=== PATIENT | male | born 1950 | race Two or more races ===

== ENCOUNTER → 2024-08-17 | Outpatient (CLI) | payer OTHER, MEDICAID, SELFPAY ==
[2024-08-17 11:23] LABS: Basophils # (Auto) 0.1 Thou/mm3 (0.0-0.2); Basophils % (Auto) 1 % (0-2.5); Eosinophils # (Auto) 0.3 Thou/mm3 (0.0-0.5); Eosinophils % (Auto) 4 % (0-10); Hematocrit 40.9 % (41.0-53.0); Hemoglobin 14.1 g/dL (13.5-16.0); Immature Granulocytes % (Auto) 1 % (0-0); Immature Granulocytes Auto 0.07 Thou/mm3 (0.00-0.00); Lymphocytes # (Auto) 1.1 Thou/mm3 (1.0-4.8); Lymphocytes % (Auto) 14 % (10-50); Mean Corpuscular HGB Conc 34.5 g/dl (31.0-37.0); Mean Corpuscular Hemoglobin 30.8 pg (25.0-35.0); Mean Corpuscular Volume 89 fL (80-100); Monocytes % (Auto) 13 % (0-12); Neutrophils # (Auto) 5.3 Thou/mm3 (1.8-7.7); Neutrophils % (Auto) 67 % (37-80); Nucleated Red Blood Cell % 0 /100 WBC (0); Platelet Count 287 Thou/mm3 (140-440); RDW Standard Deviation 43.2 fL (35.1-43.9); Red Blood Count 4.58 Miln/mm3 (4.50-5.90); White Blood Count 7.9 Thou/mm3 (3.8-10.6)
[2024-08-17 11:31] LABS: Glucose Estimated Average 148 mg/dL (80-131); Hemoglobin A1C 6.8 % Hgb (4.8-6.0)
[2024-08-17 11:34] LABS: Alanine Aminotransferase 17 U/L (10-49); Albumin/Globulin Ratio 1.5 (1.2-2.2); Alkaline Phosphatase 84 U/L (46-116); Anion Gap 9 (7-16); Aspartate Amino Transferase 12 U/L (0-34); BUN/Creatinine Ratio 17 Ratio (12-20); Bilirubin,Total 0.5 mg/dL (0.3-1.2); Blood Urea Nitrogen 15 mg/dL (9-23); Calcium 8.9 mg/dL (8.3-10.6); Calcium (Corrected) 8.9 mg/dL (8.5-10.1); Carbon Dioxide 26.1 mMol/L (20.0-31.0); Cardiac Risk Estimate 5.3 RATIO (4.0-6.7); Chloride 102 mMol/L (98-107); Cholesterol 210 mg/dL (132-200); Creatinine (Component) 0.9 mg/dL (0.6-1.3); Globulin 2.6 gm/dL (2.3-3.5); Glucose 148 mg/dL (74-106); HDL Cholesterol 40 mg/dL (40-60); LDL Cholesterol,Calculated 141 mg/dL (0-130); Osmolality,Calculated 277 (275-295); Potassium 3.8 mMol/L (3.4-5.1); Sodium 137 mMol/L (136-145); Total Protein 6.6 gm/dL (5.7-8.2); Triglycerides 143 mg/dL (30-150); eGFR > 60 See Note
[2024-08-17 11:39] LABS: Creatinine MALB Rnd Ur 133 mg/dL (30-125); Microalbumin Creat Ratio 4 mg/gCrea (<30); Microalbumin, Random Urine 5 mg/L (0-300)
== END | disposition home or self-care (01) ==
PROVIDERS: PCP Nurse Practitioner Family; Referring Provider Nurse Practitioner Family; Visit Provider Nurse Practitioner Family
DX: I10 Essential (primary) hypertension (principal); E78.5 Hyperlipidemia, unspecified; E11.9 Type 2 diabetes mellitus without complications
CPT/HCPCS: 36415; 80053; 80061; 82043; 82570; 83036; 85025

== ENCOUNTER 2025-02-04 10:55 | Emergency (ER) | payer MEDICARE, SELFPAY ==
[2025-02-04] VITALS (9 sets, daily range): BP systolic 125–158; BP diastolic 78–91; PULSE 75–110; RESP 14–18; TEMP 36.4–37; O2SAT 94–99; BMI 23.3
--- NOTE | 2025-02-04 11:42 | PD.EDADULT ---
ED General RME/HPI General Chief complaint: Depression Stated complaint: DEPRESSION/WEAKNESS Time Seen by Provider: 02/04/25 11:53 Arrival date/time: 02/04/25 10:55 RME / HPI RME / HPI narrative: DR. TIDWELL MAIN ED EVALUATION: 74 year old male with past medical history significant for hypertension, arthritis on [place] presents to the Emergency Department [facility] with complaints of generalized weakness, depression, and failure to thrive. Patient lives alone and his recently and they were for 49 years; patient became depressed not wanting to eat or take his medications, even though he has them at home. Per EMS, BP was 140/90, tachycardic at 110. Per EMS, he is not suicidal but he is depressed. Patient also complained of generalized body aches from his arthritis; he has [place] but has not taken it. Patient has not ate in 3 days even though he has food. 1640: Daughter came in and states that she does know her dad is sad but that he does take his medications. She states that he has abdominal pain and constipation. Last bowel movement was 7 days ago. Also, daughter reports decreased appetite. Related Data Home Medications ?Medication ?Instructions ?Recorded ?Confirmed benazepril 20 mg tablet 20 mg PO DAILY 07/08/20 04/18/21 lorazepam 0.5 mg tablet 0.5 mg PO PRN PRN Anxiety 01/05/21 04/18/21 amlodipine 10 mg tablet (Norvasc) 10 mg PO DAILY 04/18/21 04/18/21 Previous Rx's ?Medication ?Instructions ?Recorded ascorbic acid (vitamin C) 500 mg 500 mg PO BID #60 tabs 04/19/21 chewable tablet docusate sodium 100 mg capsule 100 mg PO BID #90 caps 04/19/21 (Colace) hydrocodone 7.5 mg-acetaminophen 1 tab PO Q6H PRN pain (scale score 04/19/21 325 mg tablet 7-10) #30 tabs ibuprofen 600 mg tablet 600 mg PO Q8H PRN pain (scale 04/19/21 score 4-6) #15 tabs psyllium husk (with sugar) 3.4 1 tsp PO BID #60 ea 04/19/21 gram oral powder packet (Metamucil (with sugar)) zinc sulfate 50 mg zinc (220 mg) 50 mg PO QDAY #30 caps 08/19/21 capsule acetaminophen 325 mg capsule 650 mg (2 x 325 mg) PO Q6H PRN 02/12/23 pain #30 caps Allergies Allergy/AdvReac Type Severity Reaction Status Date / Time Iodinated Contrast Media Allergy Severe Hives Verified 04/18/21 08:00 (Iodinated Contrast- Oral and IV Dye) Review of Systems Review of Systems Systems Reviewed: All systems reviewed, normal except as documented Narrative Review of Systems: Constitutional: POSITIVES: decreased appetite (see HPI); generalized weakness DENIES: fevers; Eyes: DENIES: loss of vision; Head/Ear/Nose: DENIES: loss of hearing. Throat: DENIES: dysphagia. Cardiovascular: DENIES: chest pain, dyspnea, or syncope. Respiratory: DENIES: shortness of breath; Gastrointestinal: DENIES: rectal bleeding or melena. Genitourinary: DENIES: dysuria (painful or difficult urination); Musculoskeletal: DENIES: arthralgia (pain in a joint); Skin: DENIES: rash; Neurological: DENIES: loss of function or movement; Psychiatric: POSITIVES: recent major life stressor, emotional problem, depression (see HPI) DENIES: illicit drug use or abuse; Endocrinology: DENIES: weight change,; Hematologic/Lymphatic: DENIES: abnormal bruising. Allergic/Immunologic: DENIES: urticaria (hives). Past Medical History Past Medical History CARDIAC: Positive Cardiac Disorders and Hypertension GASTROINTESTINAL: Positive Hemorrhoids GENITOURINARY: Positive Genitourinary Disorders and Inguinal Hernia MUSCULOSKELETAL: Positive Musculoskeletal Disorders and Rheumatoid Arthritis PSYCHO/SOCIAL: Positive Anxiety OTHER HISTORY: Positive Chicken Pox Surgical History SURGICAL: Positive Abdominal Surgery Social History SMOKING STATUS: Former smoker SUBSTANCE USE: does not use ED Exam Narrative Physical exam: Physical Exam: General: The vital signs were reviewed. He has poor eye contact appears depressed. He says no one is feeding him but he lives alone and has food and water per paramedics. The patient is non-toxic, in no apparent distress and appears healthy with a patent airway, no respiratory distress and has no apparent circulatory problems. Head & Scalp: Normocephalic, atraumatic. Face: Appears normal and is without lesions, deformity. Ears: Left external pinna appears normal. Right external pinna appears normal. Eyes: The sclera is anicteric. No obvious photophobia. The Left and Right Orbit/Lid/Conjunctiva appears normal without swelling, discoloration or injection. Nose: The nose is without deformity, discharge or tenderness; Throat: Appears normal. The mucous membranes are pink and moist without exudates, redness or mass seen. The tongue appears normal. Neck: The neck is supple and no apparent mass or adenopathy. Chest: The chest wall is normal in size and symmetry and has no chest wall tenderness or crepitus. The patient displays normal ventilator effort without retractions, accessory muscle use and has adequate air movement bilaterally with no wheezes and no rales. Cardiovascular: Regular rate and rhythm; No murmurs, rubs, or gallops; Gastrointestinal: The abdomen appears normal. No obvious hernias or mass. Patient had central abdominal tenderness. Bowel sounds are present and normal sounding. No CVA tenderness. Genitourinary: Back/Spine: Normal inspection Extremities/Musculoskeletal/lymphatic: The bilateral upper and lower extremities are warm. There is no evidence of arterial insufficiency. There is no evidence of venous insufficiency/edema. The patient spontaneously moves bilateral upper and lower extremities with no pain and no limitation of movement. There is no apparent, injury or trauma. Skin: The skin is warm, dry and intact. No rashes. No petechia. No purpura. No abnormal bruising. The color is appropriate with no cyanosis. Mental status/Psychiatric: Mental status is appropriate for age. The patient has no apparent delusions, visual hallucinations, no apparent audible hallucinations. The patient has no apparent suicidal thoughts/ideation and no apparent homicidal thoughts/ideation. Neurological: The patient is awake, alert, interactive, cordial, cooperative and is oriented to name and situation. The patient follows commands and answers historical question with no impairment. There is no visual disturbance apparent. The pupils are equal and reactive bilaterally with normal eye movements and no diplopia The bilateral upper and lower extremities have normal strength, normal range of motion and normal functioning. The gait, station and balance not tested due to acute Course Quality Measures none Orders Category Date Time Status Bedside Blood Glucose NOW Care 02/04/25 11:[address] Screening NOW Care 02/04/25 17:22 Active Consult Leasing Specialist NOW Care 02/04/25 11:54 Completed EKG (ED ONLY) *Do not use* NOW Care 02/04/25 11:53 Completed Insert IV NOW Care 02/04/25 11:[address] abdomen pelvis w con Stat Exams 02/04/25 17:[address] head/brain wo con Stat Exams 02/04/25 11:53 Completed EKG (ED Only) Stat Exams 02/04/25 11:53 Draft XR chest 1V portable Stat Exams 02/04/25 11:53 Completed Alcohol, Blood Medical Stat Lab 02/04/25 11:53 Completed Ammonia Stat Lab 02/04/25 12:10 Completed B-Type Natriuretic Peptide Stat Lab 02/04/25 11:53 Completed Blood Culture (Lab) Stat Lab 02/04/25 12:10 Received CBC Stat Lab 02/04/25 11:53 Completed Comprehensive Metabolic Panel Stat Lab 02/04/25 11:53 Completed Drug Screen,Urine Stat Lab 02/04/25 13:14 Completed Lactate (Lactic Acid) Stat Lab 02/04/25 11:53 Completed Procalcitonin Stat Lab 02/04/25 11:53 Completed Prothrombin Time with INR Stat Lab 02/04/25 11:53 Completed Troponin I Stat Lab 02/04/25 11:53 Completed Type and Screen Stat Lab 02/04/25 12:10 Completed Urinalysis Stat Lab 02/04/25 13:14 Completed Urinalysis, C/S if Indicated Stat Lab 02/04/25 13:14 Completed Venous Blood Gas Stat Lab 02/04/25 11:53 Completed Acetaminophen Tab [Tylenol ES Tab] Med 02/04/25 17:27 Discontinued 1,000 mg PO X1 ONE DiphenhydrAMINE INJ [Benadryl Inj] Med 02/04/25 17:45 Discontinued 50 mg IVP X1 ONE MethylPREDNISolone.* [SoluMEDROL Inj] Med 02/04/25 17:45 Discontinued 125 mg IVP X1 ONE Sodium Chloride 0.9% 1000 ml [Ns] 1,000 ml Med 02/04/25 11:53 Discontinued IV 1,000 mls/hr Sodium Chloride 0.9% 1000 ml [Ns] 1,000 ml Med 02/04/25 11:53 Active IV 150 mls/hr Sodium Chloride 0.9% 1000 ml [Ns] 1,000 ml Med 02/04/25 17:21 Discontinued IV 999 mls/hr bisacodyL [Dulcolax Supp] Med 02/04/25 17:34 Discontinued 10 mg MI X1 ONE Reevaluation(s) Reevaluation #1: Daughter came in and states that she does know her dad is sad but that he does take his medications. She states that he has abdominal pain and constipation. Last bowel movement was 7 days ago. Also, daughter reports decreased appetite. Time: 16:40 Vital Signs Vital signs: Vital Signs Temperature 98.3 F 02/04/25 10:57 Pulse Rate 110 H 02/04/25 10:57 Respiratory Rate 17 02/04/25 10:57 Blood Pressure 149/81 H 02/04/25 10:57 Pulse Oximetry (%) 95 02/04/25 10:57 Oxygen Delivery Method Room Air 02/04/25 10:57 Discharge Plan Prescriptions/Referrals Prescriptions/Med Rec: No Action lorazepam 0.5 mg Tablet 0.5 mg PO PRN PRN (Reason: Anxiety) benazepril 20 mg Tablet 20 mg PO DAILY amlodipine [Norvasc] 10 mg Tablet 10 mg PO DAILY hydrocodone-acetaminophen 7.5-325 mg tablet 1 tab PO Q6H MDD 4 PRN (Reason: pain (scale score 7-10)) Qty: 30 0RF ibuprofen 600 mg tablet 600 mg PO Q8H PRN (Reason: pain (scale score 4-6)) Qty: 15 0RF docusate sodium [Colace] 100 mg capsule 100 mg PO BID Qty: 90 0RF ascorbic acid (vitamin C) 500 mg tablet,chewable 500 mg PO BID Qty: 60 0RF zinc sulfate 50 mg zinc (220 mg) capsule 50 mg PO QDAY Qty: 30 0RF Metamucil (with sugar) 3.4 gram powder in packet 1 tsp PO BID Qty: 60 0RF acetaminophen 325 mg capsule 650 mg PO Q6H PRN (Reason: pain) Qty: 30 0RF Referrals: Pa Hendricks FNP [Primary Care Provider] - In 1 week Problem List Clinical Impression: Abdominal pain, Weakness, Depression Patient/Caregiver Discharge Instructions Print Language: Iraqi MDM Narrative MDM hospital course: Patient brought in by EMS who has not been eating or drinking and reports that his 7 months ago and has been noncompliant with his medication and had poor p.o. intake. Will work him up for any medical issue and get social sciences instructor to evaluate the the situation. Concerns for your depression and pseudodementia are looming. I will get a CT just to rule out any intracerebral issue. Medical workup came back white count 941 hemoglobin 15.5 PT/INR within normal is pH was 7.41 pCO2 of 47 sodium 140 potassium 4 point chloride 100 CO2 20.1 BUN 10 creatinine 0.7 glucose 142 lactic acid 1.1 ammonia was less than 10 troponin and BNP were negative procalcitonin was negative urinalysis came back unremarkable for any infection drug screen is positive for opioids alcohol level is negative. Recheck in the patient shows to be essentially unchanged and the daughter is in the room and states he is complaining of some abdominal pain which the patient did not report initially. She tends and neither that he is depressed and that he although he started with the she believes he is got acute abdominal problem going on. CT scan was ordered but unfortunately ER acuities are high and volumes are high and the CT is is not done as of 1999 hrs. Patient was signed out to Dr. Nuñez at about 1930 hrs. To follow-up on the CT and reevaluate Ann Marie Rajan am scribing for and in the presence of Dr. Tidwell. Clinical Information Provided by patient and EMS Medical Records Reviewed EMS Meds/Rx Considered, not Ordered None Labs/Rad/Tests considered, not Ordered None Chronic Illness/Social Conditions Add or document further as needed: Arthritis EKG Interpretation EKG #1: Date/time of EK02/04/25 1204 hours EKG interpretation: sinus tachycardia, rate 104, no STEMI Lab Interpretation Labs: see narrative above Imaging Imaging interpretation: see narrative above Radiology reports / interpretation(s): Procedure(s): CT head/brain wo con Accession Number(s): [id number] cc: Pa Hendricks; Jarad Tidwell MD; Sixto Crar MD~ Examination: CT brain head without contrast. 2-D sagittal coronal reconstructions Date and time of exam:February 04, 2025 1304 hours Comparison February 02, 2019 INDICATIONS: Loss of consciousness episode today followed by headache and altered mental status CTDI: vol (mGy):52.1 DLP: (mGycm):1106 Technique: Multiple CT axial sections of the brain have been obtained, 5 mm slice thickness. Contrast has not been administered. 2-D sagittal, coronal reconstructions have been obtained Low dose protocols were performed. One or more of the following dose reduction techniques were used; automated exposure control, adjustment of the mA and/or KV according to patient size, use of iterative reconstruction technique. Findings: No significant ventricular enlargement. 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 No mass effect or midline shift Basal cisterns are not remarkable. Fourth ventricle is midline. Cranial vault intact. 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 FINDINGS: No significant cardiac enlargement Moderate elevation right hemidiaphragm Mild to moderate vascular congestion No lobar pneumonia IMPRESSION: Mild to moderate vascular congestion No doreen pulmonary edema No lobar pneumonia Dictated By: Sixto Carr MD Medication Administration(s) Medication Administration History Sodium Chloride (Ns) 1,000 mls @ 150 mls/hr IV .Q6H40M CHRISSIE Stop: 02/05/25 01:12 Last Admin: 02/04/25 19:57 Dose: 150 mls/hr Documented By: Infusion: 02/04/25 19:55 Dose: Infused Documented By: Admin: 02/04/25 12:16 Dose: 150 mls/hr Documented By: GEOVANY Discontinued Medications Acetaminophen (Acetaminophen 500 Mg Tablet) 1,000 mg PO X1 ONE Stop: 02/04/25 17:28 Last Admin: 02/04/25 17:31 Dose: 1,000 mg Documented By: GEOVANY Bisacodyl (Bisacodyl 10 Mg Supp) 10 mg MI X1 ONE; Protocol Stop: 02/04/25 17:35 Last Admin: 02/04/25 17:36 Dose: Not Given Documented By: GEOVANY Non-Admin Reason: Patient Refused Diphenhydramine HCl (Diphenhydramine Inj 50 Mg/Ml Vial) 50 mg IVP X1 ONE Stop: 02/04/25 17:46 Last Admin: 02/04/25 18:33 Dose: 50 mg Documented By: GEOVANY Sodium Chloride (Ns) 1,000 mls @ 1,000 mls/hr IV .Q1H ONE Stop: 02/04/25 12:52 Last Infusion: 02/04/25 14:13 Dose: Infused Documented By: Admin: 02/04/25 12:12 Dose: 1,000 mls/hr Documented By: GEOVANY Sodium Chloride (Ns) 1,000 mls @ 999 mls/hr IV .Q1H1M ONE Stop: 02/04/25 18:21 Last Infusion: 02/04/25 18:33 Dose: Infused Documented By: Admin: 02/04/25 17:31 Dose: 999 mls/hr Documented By: GEOVANY Methylprednisolone Sodium Succinate (Methylprednisolone Sod Succ 62.5 Mg/Ml 2ml Vial) 125 mg IVP X1 ONE Stop: 02/04/25 17:46 Last Admin: 02/04/25 18:33 Dose: 125 mg Documented By: SM Diagnosis Differential diagnosis: depression, electrolyte imbalance, dehydration
--- NOTE | 2025-02-04 11:53 | EKG_ITS ---
[facility] Test Date: 2025-02-04 Pat Name: TRISH COYLE Department: Room: - Gender: Male Publication Director: : 1950 Requested By: Jarad Avendano Order Number: [id number] Reading MD: Jarad Avendano Measurements Intervals [place] Rate: 104 P: 9 CO: 146 QRS: -9 QRSD: 90 T: 4 QT: 324 QTc: 427 Interpretive Statements SINUS TACHYCARDIA ABNORMAL RHYTHM ECG Compared to ECG 02/12/2023 18:12:53 No significant changes /store/S0/[id number]/ecg/[id number].pdf
--- NOTE | 2025-02-04 11:53 | XR_ITS ---
Examination: AP chest single view Technique one AP portable chest single view Date and time: February 04, 2025 1217 hours Comparison February 12, 2023 INDICATIONS: Onset acute chest pain today. FINDINGS: No significant cardiac enlargement Moderate elevation right hemidiaphragm Mild to moderate vascular congestion No lobar pneumonia IMPRESSION: Mild to moderate vascular congestion No doreen pulmonary edema No lobar pneumonia
--- NOTE | 2025-02-04 11:53 | XR_ITS ---
Examination: CT brain head without contrast. 2-D sagittal coronal reconstructions Date and time of exam:February 04, 2025 1304 hours Comparison February 02, 2019 INDICATIONS: Loss of consciousness episode today followed by headache and altered mental status CTDI: vol (mGy):52.1 DLP: (mGycm):1106 Technique: Multiple CT axial sections of the brain have been obtained, 5 mm slice thickness. Contrast has not been administered. 2-D sagittal, coronal reconstructions have been obtained Low dose protocols were performed. One or more of the following dose reduction techniques were used; automated exposure control, adjustment of the mA and/or KV according to patient size, use of iterative reconstruction technique. Findings: No significant ventricular enlargement. 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 No mass effect or midline shift Basal cisterns are not remarkable. Fourth ventricle is midline. Cranial vault intact. 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
[2025-02-04] MEDS: SODIUM CHLORIDE 0.9% 1000 ML 1,000 ML IV (12:12)
[2025-02-04] MEDS: SODIUM CHLORIDE 0.9% 1000 ML 1,000 ML 150 ML IV ×2 (12:16→19:57)
[2025-02-04 12:32] LABS: Base Excess, Venous 5 (-3-3); O2 Saturation, Venous 58 % (96-97); PCO2, Venous 47 mmHg (36-56); PO2, Venous 30 mmHg (15-58); pH, Venous 7.41 (7.33-7.66)
[2025-02-04 12:33] LABS: Lactate (Lactic Acid) 1.1 mMol/L (0.4-2.0)
[2025-02-04 12:35] LABS: Basophils % (Auto) 0 % (0-2.5); Eosinophils # (Auto) 0.4 Thou/mm3 (0.0-0.5); Eosinophils % (Auto) 4 % (0-10); Hemoglobin 15.5 g/dL (13.5-16.0); Immature Granulocytes % (Auto) 1 % (0-0); Immature Granulocytes Auto 0.06 Thou/mm3 (0.00-0.00); Lymphocytes # (Auto) 1.4 Thou/mm3 (1.0-4.8); Lymphocytes % (Auto) 16 % (10-50); Mean Corpuscular HGB Conc 33.7 g/dl (31.0-37.0); Mean Corpuscular Volume 89 fL (80-100); Monocytes # (Auto) 0.8 Thou/mm3 (0.0-0.8); Monocytes % (Auto) 9 % (0-12); Neutrophils # (Auto) 6.4 Thou/mm3 (1.8-7.7); Neutrophils % (Auto) 71 % (37-80); Nucleated Red Blood Cell % 0 /100 WBC (0); Platelet Count 385 Thou/mm3 (140-440); RDW Standard Deviation 42.2 fL (35.1-43.9); Red Blood Count 5.16 Miln/mm3 (4.50-5.90); White Blood Count 9.1 Thou/mm3 (3.8-10.6)
[2025-02-04 12:58] LABS: Ammonia < 10 uMol/L (11-32)
[2025-02-04 13:06] LABS: B-Type Natriuretic Peptide < 20 pg/mL (0-100)
[2025-02-04 13:13] LABS: Alanine Aminotransferase 13 U/L (10-49); Albumin, Serum 4.1 gm/dL (3.4-4.8); Albumin/Globulin Ratio 1.4 (1.2-2.2); Alcohol, Blood Medical < 3.0 mg/dL (0-10.0); Alkaline Phosphatase 89 U/L (46-116); Anion Gap 12 (7-16); Aspartate Amino Transferase 17 U/L (0-34); BUN/Creatinine Ratio 14 Ratio (12-20); Blood Urea Nitrogen 10 mg/dL (9-23); Carbon Dioxide 28.1 mMol/L (20.0-31.0); Chloride 100 mMol/L (98-107); Creatinine (Component) 0.7 mg/dL (0.6-1.3); Estimated Creatinine Clearance 86.6 mL/min (>60); Glucose 142 mg/dL (74-106); Osmolality,Calculated 280 (275-295); Potassium 4.1 mMol/L (3.4-5.1); Procalcitonin 0.12 ng/ml (0.0-0.49); Sodium 140 mMol/L (136-145); Total Protein 7.1 gm/dL (5.7-8.2); Troponin I < 0.002 ng/mL (0.0-0.045); eGFR > 60 See Note
[2025-02-04 13:29] LABS: Collection Type, Urine Clean Catch; Squamous Epithelial Cell,Urine 0 /hpf (0-5)
[2025-02-04 13:34] LABS: Bilirubin,Urine Negative (Negative); Blood,Urine Negative (Negative); Clarity,Urine Clear (Clear/Hazy); Color,Urine Lt-Yellow (Lt Yel-Yel); Culture Indicated,Urine Not Indicated; Glucose, Urine Negative (Negative); Ketones,Urine Trace (Negative); Leukocyte Esterase,Urine Negative (Negative); Nitrite,Urine Negative (Negative); Protein,Urine Negative (Neg - Trace); RBC,Urine 1 /hpf (0-3); WBC,Urine 1 /hpf (0-5)
[2025-02-04 13:43] LABS: Amphetamine/Methamp Scrn,U Negative (Negative); Barbiturate Screen,Urine Negative (Negative); Benzodiazepines Screen,Urine Negative (Negative); Benzoylecgonine Screen, Ur Negative (Negative); Fentanyl Screen,Urine Negative (Negative); Opiate Screen,Urine Positive (Negative); THC Screen,Urine Negative (Negative)
--- NOTE | 2025-02-04 13:46 | PC.CC ---
Patient is a 74 year-old male who presents to the hospital for weakness. ASW received a consult for possible depression. ASW, Nikky and JOURNALISM INTERN Student Zoe made [id number] contact with patient. ASW introduced self, role, and reason for visit. Patient appeared alert and oriented to self, location, and situation. At bedside was patient's daughter, Eulalia Moreno , patient provided verbal consent for her to remain in room and participate in assessment. Patient provided consent for JOURNALISM INTERN to remain in the room during assessment. ASW informed patient of limits of confidentiality. Patient was pleasant and engaged in initial assessment. Patient reports he lives home alone and confirmed information on demographics. Per daughter, her mother patient's 6 months ago. Patient reports that in the event he is unable to make his own medical decisions his daughter would be his medical decision maker. At home patient is able to ambulate independently and complete his own ADLs. Patient does not require any DME and is not a dialysis patient. Patient's daughter reports that patient has been struggling with his arthritis lately and he has been in physical pain. Due to the pain at night that patient stays up and is sleeping during the day. Patient's primary provider is Pa Hendricks. ASW explored with patient feelings of depression to which he denied. Patient stated, Sad, I am not sad. The daughter stated if he was sad about mom passing away to which the patient stated, Your mom is gone. ASW explored with patient if he has had any suicidal ideations and patient reported he has not. Patient denied past suicide attempts. At the time of encounter patient denied visual and auditory hallucinations, suicidal and homicidal ideations. ASW inquired if patient was open to mental health outpatient services and patient denied a referral. ASW inquired if patient was open to home health for physical therapy and he also denied referral. Patient's daughter reports she will be going to stay with him at his home. client services associate to follow up if any needs arise.
--- NOTE | 2025-02-04 17:20 | XR_ITS ---
Examination: CT abdomen with intravenous contrast CT pelvis with intravenous contrast 2-D coronal reconstructions 2-D sagittal reconstructions Date and time of exam:February 04, 2025 1854 hours Comparison September 19, 2018 INDICATIONS: Abdominal pain and weakness nausea vomiting beginning 3 days ago. CTDI: vol (mGy) 6.52 DLP: (mGycm) 406 Technique: Multiple axial sections of the abdomen and pelvis have been obtained. 64 slice high-resolution scanner used. 3 mm axial sections have been obtained, post intravenous injection 60 cc [id number] 2-D sagittal, coronal reconstructions obtained. Low dose protocols were performed. One or more of the following dose reduction techniques were used; automated exposure control, adjustment of the mA and/or KV according to patient size, use of iterative reconstruction technique. Findings: Bibasilar pneumonia No focal liver lesions Suspicious for small gallstones Spleen is not enlarged No pancreatic or adrenal mass No renal or ureteral calculi, no hydronephrosis AP dimension infrarenal abdominal aorta 28 mm No bowel obstruction Normal appendix Stable calcification in the right abdomen which may represent calcified lymph node, 25 mm Colonic diverticulosis Intact urinary bladder No significant prostatomegaly Diffuse advanced lumbar degenerative disc disease IMPRESSION: Bibasilar pneumonia Recommend gallbladder sonography to exclude gallstones No renal or ureteral calculi Mild dilatation infrarenal abdominal aorta Normal appendix Colonic diverticulosis, no diverticulitis No bowel obstruction
[2025-02-04] MEDS: SODIUM CHLORIDE 0.9% 1000 ML 1,000 ML 999 ML IV (17:31)
[2025-02-04] MEDS: ACETAMINOPHEN 500 MG TABLET 1000 MG PO (17:31)
[2025-02-04] MEDS: DiphenhydrAMINE INJ 50 MG/ML VIAL IVP (18:33)
[2025-02-04] MEDS: MethylPREDNISolone SOD SUCC 62.5 MG/ML 2ML VIAL 125 MG IVP (18:33)
--- NOTE | 2025-02-04 21:28 | PC.NURSE ---
FAMILY CONTACT- YVETTE CASTILLO- [phone]
--- NOTE | 2025-02-04 23:29 | PD.EDADDENDU ---
Emergency Room Addendum <Teressa Patel - Last Filed: 02/04/25 23:35> Addendum Narrative: I took over the care from previous shift physician at 6 PM on 02/04/2025. See previous notes for complete H & P and ED course. I reviewed all diagnostic test results. My interpretation of the EKG is My interpretation of the chest x-ray is Mild to moderate vascular congestion. No doreen pulmonary edema. No lobar pneumonia. My review of the Abdomen/Pelvis CT report is Bibasilar pneumonia. Recommend gallbladder sonography to exclude gallstones. No renal or ureteral calculi. Mild dilatation infrarenal abdominal aorta. Normal appendix. Colonic diverticulosis, no diverticulitis. No bowel obstruction. My review of the Head CT report is Negative for acute hemorrhage, mass effect or midline shift. 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 Consider brain MRI follow-up to best assess for acute ischemic change. Blood tests and urine tests Diagnoses include: Pneumonia Treatment here included Zithromax, Rocephin, Tylenol, IV fluids, Benadryl, SolumMedrol, Dulcolax. Based on my best medical judgment, made decision no further evaluation or treatment indicated at this time. Patient understands and agrees to the discharge instructions customized and printed, see below. Discharge instructions from Dr. Nuñez: --After extensive evaluation, there is no life-threatening condition. Such as stroke or brain tumor or heart attack. --But we have pneumonia. --No physical exertion for 3 days to help rest the lungs. --Then increase physical activity slightly every single day. Prolonged inactivity is terrible for the body. ?No smoking or exposure to smoking or pets or dust or cold or humidity. --Zithromax to kill the germs causing the bronchitis. --Prednisone to help decrease the swelling in the airways. --Albuterol 2 puffs every 4-6 hours as needed for cough or shortness of breath. --See a private doctor on 02/07/2025 for recheck and further care. Ask to review all test results and official radiology reports, to make sure you receive all necessary followups and monitoring. Ask for help until we are completely better. --Seek immediate medical care with worsening or with any concerns. Carl Nuñez MD <Carl Nuñez MD - Last Filed: 02/05/25 00:00> Addendum Narrative: I took over the care from previous shift physician at 6 PM on 02/04/2025. See previous notes for complete H & P and ED course. I reviewed all diagnostic test results. My interpretation of the EKG is sinus rhythm with no acute ST?T changes. My interpretation of the chest x-ray is infiltrates. My review of the Abdomen/Pelvis CT report is bilateral pneumonia. My review of the Head CT report is NAD. Blood tests and urine tests unremarkable. Diagnoses include: Pneumonia Treatment here from me included Zithromax and Rocephin. Patient remained stable. Recommended a trial of outpatient treatment. Based on my best medical judgment, made decision no further evaluation or treatment indicated at this time. Patient and daughter understands and agrees to the discharge instructions customized and printed, see below. Discharge instructions from Dr. Nuñez: --After extensive evaluation, there is no life-threatening condition. Such as stroke or brain tumor or heart attack. --But we have pneumonia. --No physical exertion for 3 days to help rest the lungs. --Then increase physical activity slightly every single day. Prolonged inactivity is terrible for the body. ?No smoking or exposure to smoking or pets or dust or cold or humidity. --Zithromax to kill the germs causing the bronchitis. --Prednisone to help decrease the swelling in the airways. --Albuterol 2 puffs every 4-6 hours as needed for cough or shortness of breath. --See a private doctor on 02/07/2025 for recheck and further care. Ask to review all test results and official radiology reports, to make sure you receive all necessary followups and monitoring. Ask for help until we are completely better. --Seek immediate medical care with worsening or with any concerns. Carl Nuñez MD
[2025-02-04] MEDS: AZITHROMYCIN 250 MG TABLET 500 MG PO (23:31)
[2025-02-04] MEDS: cefTRIAXone/D5w 1gm IV premix 1 GM/50 ML BAG IV (23:32)
== END 2025-02-05 00:02 | disposition home or self-care (01) ==
PROVIDERS: Emergency Medicine; Emergency Provider Emergency Medicine; PCP Nurse Practitioner Family
DX: R10.9 Unspecified abdominal pain (principal); F32.A Depression, unspecified; R07.9 Chest pain, unspecified; Z86.73 Personal history of transient ischemic attack (TIA), and cerebral infarction without residual deficits; J18.9 Pneumonia, unspecified organism; K57.30 Diverticulosis of large intestine without perforation or abscess without bleeding
CPT/HCPCS: 36415; 70450; 71045; 74177; 80053; 80307; 80320; 81001; 82140; 82803; 83605; 83880; 84145; 84484; 85025; 85610; 86850; 86900; 86901; 87040; 93005; 96127; 96361; 96365; 96375; 99285; A4649; J0696; J1200; J2919; J7030; Q9967; A9270; G0480